=== PATIENT | male | born 1945 | race Caucasian/White ===

== ENCOUNTER → 2018-02-15 | Outpatient (CLI) | payer MEDICARE, BC ==
[~2018-02-15] MED LIST: ATORVASTATIN CA40 MG PO; LISINOPRIL10 MG PO; NOVOLIN N100 UNIT/1 SQ; PANTOPRAZOLE SO40 MG PO
== END ==
LOC: CARD 08:54
PROVIDERS: ATTEND Family Medicine
DX: R42 Dizziness and giddiness (principal)
CPT/HCPCS: 93880

== ENCOUNTER 2019-03-07 15:00 | Observation (INO) | payer MEDICARE, BC ==
[2019-03-07] VITALS (7 sets, daily range): BP systolic 160–178; BP diastolic 77–91
[~2019-03-07] VITALS: Ht 175.3 cm; Wt 84.9 kg
--- NOTE | 2019-03-07 14:18 | NUR ---
PT ARRIVED BY STRETCHER TO ROOM. PT IN NO APPARENT DISTRESS AT THIS TIME. VSS. PT IS ALERT AND ORIENTED X3. PT AND SON ARE PRESENT AT BEDSIDE. PT CALL LIGHT IS IN REACH. BED IS IN LOW LOCKED POSITION. WILL CONTINUE TO MONITOR PT CLOSELY.
--- OUTSIDE RECORDS SUMMARY | 2019-03-07 15:04 | XMS REPORT ---
Author Author [facility] [place] [facility] Address Unknown Phone Unavailable Care Team Providers Care Wedding Designer Name Role Phone Unavailable Unavailable Payers Payer Name Policy Type Policy Number Effective Date Expiration Date Problems This patient has no known problems. Allergies, Adverse Reactions, Alerts Allergy Name Allergy Type Status Severity Reaction(s) Onset Date Inactive Date Treating Clinician Comments No Known Drug Allergies DA Active U 2018-10-31 00:00:00 No Known Allergies DA Active U 2018-06-25 00:00:00 No Known Drug Allergies DA Active U 2015-11-15 00:00:00 Medications This patient has no known medications. Results Test Description Test Time Test Comments Text Results Atomic Results Result Comments GLUBED 2018-12-05 08:23:00 GLUBED (test code=GLUBED) 108 mg/dL 60-125 CBC W/AUTO [id number] 05:50:00* Test Item Value Reference Range Comments WHITE BLOOD CELL (test code=WBC) 10.1 K/mm3 5.7-10.5 RED BLOOD CELL (test code=RBC) 4.37 M/mm3 4.2-5.4 HEMOGLOBIN (test code=HGB) 13.0 g/dL 12-16 HEMATOCRIT (test code=HCT) 38.7 % 37-47 MEAN CELL VOLUME (test code=MCV) 89 fL 80-98 MEAN CELL HGB (test code=MCH) 29.7 pg 27-34 MEAN CELL HGB CONCENTRATION (test code=MCHC) 33.6 g/dL 30.8-34.1 RED CELL DISTRIBUTION WIDTH (test code=RDW) 13.4 % 11-16 PLT (test code=PLT) 169 K/mm3 130-400 MEAN PLATELET VOLUME (test code=MPV) 11.4 fL 8.9-12.1 NEUTROPHIL % (test code=NT%) 87.4 % 45-70 LYMPHOCYTE % (test code=LY%) 4.1 % 20-40 MONOCYTE % (test code=MO%) 6.5 % 3-10 EOSINOPHIL % (test code=EO%) 1.7 % 1-5 BASOPHIL % (test code=BA%) 0.1 % 0.0-1.1 NEUTROPHIL # (test code=NT#) 8.80 K/mm3 2.00-7.50 LYMPHOCYTE # (test code=LY#) 0.41 K/mm3 1.50-4.00 MONOCYTE # (test code=MO#) 0.65 K/mm3 0.2-0.8 EOSINOPHIL # (test code=EO#) 0.17 K/mm3 0.04-0.4 BASOPHIL # (test code=BA#) 0.01 K/mm3 0.02-0.10 MANUAL DIFF REQUIRED (test code=MDIFF) NO MANUAL DIFF NUCLEATED RED BLOOD CELL (test code=NRBC) 0 % 0-0 SPECIMEN COMMENT: POD #[id number] 20:56:00* Test Item Value Reference Range Comments GLUBED (test code=GLUBED) 255 mg/dL 60-125 [id number] 15:38:00* Test Item Value Reference Range Comments GLUBED (test code=GLUBED) 91 mg/dL 60-125 [id number] 12:05:00* Test Item Value Reference Range Comments GLUBED (test code=GLUBED) 84 mg/dL 60-125 CBC W/AUTO [id number] 10:56:00* Test Item Value Reference Range Comments WHITE BLOOD CELL (test code=WBC) 4.9 K/mm3 5.7-10.5 RED BLOOD CELL (test code=RBC) 5.10 M/mm3 4.2-5.4 HEMOGLOBIN (test code=HGB) 14.9 g/dL 12-16 HEMATOCRIT (test code=HCT) 45.0 % 37-47 MEAN CELL VOLUME (test code=MCV) 88 fL 80-98 MEAN CELL HGB (test code=MCH) 29.2 pg 27-34 MEAN CELL HGB CONCENTRATION (test code=MCHC) 33.1 g/dL 30.8-34.1 RED CELL DISTRIBUTION WIDTH (test code=RDW) 13.4 % 11-16 PLT (test code=PLT) 165 K/mm3 130-400 MEAN PLATELET VOLUME (test code=MPV) 11.3 fL 8.9-12.1 NEUTROPHIL % (test code=NT%) 69.2 % 45-70 LYMPHOCYTE % (test code=LY%) 14.5 % 20-40 MONOCYTE % (test code=MO%) 10.0 % 3-10 EOSINOPHIL % (test code=EO%) 4.7 % 1-5 BASOPHIL % (test code=BA%) 1.2 % 0.0-1.1 NEUTROPHIL # (test code=NT#) 3.38 K/mm3 2.00-7.50 LYMPHOCYTE # (test code=LY#) 0.71 K/mm3 1.50-4.00 MONOCYTE # (test code=MO#) 0.49 K/mm3 0.2-0.8 EOSINOPHIL # (test code=EO#) 0.23 K/mm3 0.04-0.4 BASOPHIL # (test code=BA#) 0.06 K/mm3 0.02-0.10 MANUAL DIFF REQUIRED (test code=MDIFF) NO MANUAL DIFF NUCLEATED RED BLOOD CELL (test code=NRBC) 0 % 0-0 PROTHROMBIN [id number] 10:53:00* Test Item Value Reference Range Comments PROTHROMBIN TIME PATIENT (test code=PTP) 12.7 secs 10.1-12.5 INTERNATIONAL NORMAL RATIO (test code=INR) 1.12 <2.0 RECOMMENDED THERAPEUTIC RANGE FOR ORAL ANTICOAGULANTTREATMENT: CONDITION INRProphylaxis of venous thrombosis in 2.0 - 3.0 high-risk medical or surgical patientsTreatment of venous thrombosis 2.0 - 3.0Prevention of embolism 2.0 - 3.0Prevention of recurrent embolism, or 3.0 - 4.5 patients with mechanical prosthetic intravascular valves IS PATIENT ON ANTICOAGULANTS ? [facility] been notified if Patient is on Heparin D rip? NOIf Yes, order CBC, OCCULT BLOOD, PT every other day NTHROMBOPLASTIN TIME [id number] 10:53:00* Test Item Value Reference Range Comments PTT ACTIVATED (test code=APTT) 21.0 secs 24.9-37.0 IS PATIENT ON ANTICOAGULANTS ? [facility] been notified if Patient is on Heparin D rip? NOIf Yes, order CBC, OCCULT BLOOD, PT every other day NCOMPREHENSIVE METABOLIC [id number] 10:52:00* Test Item Value Reference Range Comments SODIUM (test code=NA) 140 mmol/L 136-145 POTASSIUM (test code=K) 4.3 mmol/L 3.5-5.1 CHLORIDE (test code=CL) 104.0 mmol/L 98-107 CARBON DIOXIDE (test code=CO2) 26.5 mmol/L 21-32 GLUCOSE (test code=GLU) 108 mg/dL 70-110 BLOOD UREA NITROGEN (test code=BUN) 19 mg/dL 7-18 GLOMERULAR FILTRATION RATE (test code=GFR) 67.4 >60 Unit of measure: mL/min/1.73 [id number] Range:Healthy Adults >90 mL/min/1.73 m2 For Chronic Kidney Disease: Stage II Mild Decrease in GFR 60-90 Stage III Moderate Decrease in GFR 30-59 Stage IV Severe Decrease in GFR 15-29 Stage V Kidney Failure <15 CREATININE (test code=CREAT) 1.08 mg/dL 0.55-1.30 TOTAL PROTEIN (test code=PROT) 6.5 g/dL 6.4-8.2 ALBUMIN (test code=ALB) 3.9 g/dL 3.4-5.0 GLOBULIN (test code=GLOB) 2.6 g/dL 2.2-4.2 ALBUMIN/GLOBULIN RATIO (test code=A/G) 1.5 0.7-2.0 CALCIUM (test code=CA) 9.2 mg/dL 8.2-10.1 BILIRUBIN TOTAL (test code=BILT) 0.87 mg/dL 0.2-1.00 SGOT/AST (test code=AST) 30.0 U/L 15-37 SGPT/ALT (test code=ALT) 40.0 U/L 12-78 Please note new normal range. ALKALINE PHOSPHATASE TOTAL (test code=ALKP) 78 U/L 46-116 [id number] 06:46:00* Test Item Value Reference Range Comments GLUBED (test code=GLUBED) 96 mg/dL 60-125 [id number] 11:58:00* Test Item Value Reference Range Comments GLUBED (test code=GLUBED) 116 mg/dL 60-125 CBC W/AUTO [id number] 09:49:00* Test Item Value Reference Range Comments WHITE BLOOD CELL (test code=WBC) 11.5 K/mm3 5.7-10.5 RED BLOOD CELL (test code=RBC) 4.95 M/mm3 4.2-5.4 HEMOGLOBIN (test code=HGB) 14.5 g/dL 12-16 HEMATOCRIT (test code=HCT) 43.9 % 37-47 MEAN CELL VOLUME (test code=MCV) 89 fL 80-98 MEAN CELL HGB (test code=MCH) 29.3 pg 27-34 MEAN CELL HGB CONCENTRATION (test code=MCHC) 33.0 g/dL 30.8-34.1 RED CELL DISTRIBUTION WIDTH (test code=RDW) 13.2 % 11-16 PLT (test code=PLT) 131 K/mm3 130-400 REVIEW SLIDE ,OCCASIONAL PLTS CLUMPING SEEN WITH ADEQUATEPLTS.. MEAN PLATELET VOLUME (test code=MPV) 11.0 fL 8.9-12.1 NEUTROPHIL % (test code=NT%) 87.2 % 45-70 LYMPHOCYTE % (test code=LY%) 4.4 % 20-40 MONOCYTE % (test code=MO%) 7.1 % 3-10 EOSINOPHIL % (test code=EO%) 0.7 % 1-5 BASOPHIL % (test code=BA%) 0.3 % 0.0-1.1 NEUTROPHIL # (test code=NT#) 10.00 K/mm3 2.00-7.50 LYMPHOCYTE # (test code=LY#) 0.51 K/mm3 1.50-4.00 MONOCYTE # (test code=MO#) 0.82 K/mm3 0.2-0.8 EOSINOPHIL # (test code=EO#) 0.08 K/mm3 0.04-0.4 BASOPHIL # (test code=BA#) 0.03 K/mm3 0.02-0.10 MANUAL DIFF REQUIRED (test code=MDIFF) MANUAL DIFF NUCLEATED RED BLOOD CELL (test code=NRBC) 0 % 0-0 SPECIMEN COMMENT: POD #1CBC W/AUTO [id number] 09:49:00* Test Item Value Reference Range Comments WHITE BLOOD CELL (test code=WBC) 11.5 K/mm3 5.7-10.5 RED BLOOD CELL (test code=RBC) 4.95 M/mm3 4.2-5.4 HEMOGLOBIN (test code=HGB) 14.5 g/dL 12-16 HEMATOCRIT (test code=HCT) 43.9 % 37-47 MEAN CELL VOLUME (test code=MCV) 89 fL 80-98 MEAN CELL HGB (test code=MCH) 29.3 pg 27-34 MEAN CELL HGB CONCENTRATION (test code=MCHC) 33.0 g/dL 30.8-34.1 RED CELL DISTRIBUTION WIDTH (test code=RDW) 13.2 % 11-16 PLT (test code=PLT) 131 K/mm3 130-400 REVIEW SLIDE ,OCCASIONAL PLTS CLUMPING SEEN WITH ADEQUATEPLTS.. MEAN PLATELET VOLUME (test code=MPV) 11.0 fL 8.9-12.1 NEUTROPHIL % (test code=NT%) 87.2 % 45-70 LYMPHOCYTE % (test code=LY%) 4.4 % 20-40 MONOCYTE % (test code=MO%) 7.1 % 3-10 EOSINOPHIL % (test code=EO%) 0.7 % 1-5 BASOPHIL % (test code=BA%) 0.3 % 0.0-1.1 NEUTROPHIL # (test code=NT#) 10.00 K/mm3 2.00-7.50 LYMPHOCYTE # (test code=LY#) 0.51 K/mm3 1.50-4.00 MONOCYTE # (test code=MO#) 0.82 K/mm3 0.2-0.8 EOSINOPHIL # (test code=EO#) 0.08 K/mm3 0.04-0.4 BASOPHIL # (test code=BA#) 0.03 K/mm3 0.02-0.10 MANUAL DIFF REQUIRED (test code=MDIFF) NO MANUAL DIFF NUCLEATED RED BLOOD CELL (test code=NRBC) 0 % 0-0 SPECIMEN COMMENT: POD #1BASIC METABOLIC [id number] 06:43:00* Test Item Value Reference Range Comments SODIUM (test code=NA) 138 mmol/L 136-145 POTASSIUM (test code=K) 5.4 mmol/L 3.5-5.1 CHLORIDE (test code=CL) 104.0 mmol/L 98-107 CARBON DIOXIDE (test code=CO2) 25.5 mmol/L 21-32 GLUCOSE (test code=GLU) 117 mg/dL 70-110 BLOOD UREA NITROGEN (test code=BUN) 17 mg/dL 7-18 GLOMERULAR FILTRATION RATE (test code=GFR) 82.1 >60 Unit of measure: mL/min/1.73 [id number] Range:Healthy Adults >90 mL/min/1.73 m2 For Chronic Kidney Disease: Stage II Mild Decrease in GFR 60-90 Stage III Moderate Decrease in GFR 30-59 Stage IV Severe Decrease in GFR 15-29 Stage V Kidney Failure <15 CREATININE (test code=CREAT) 0.91 mg/dL 0.55-1.30 CALCIUM (test code=CA) 8.4 mg/dL 8.2-10.1 CBC W/AUTO [id number] 06:18:00* Test Item Value Reference Range Comments WHITE BLOOD CELL (test code=WBC) 11.5 K/mm3 5.7-10.5 RED BLOOD CELL (test code=RBC) 4.95 M/mm3 4.2-5.4 HEMOGLOBIN (test code=HGB) 14.5 g/dL 12-16 HEMATOCRIT (test code=HCT) 43.9 % 37-47 MEAN CELL VOLUME (test code=MCV) 89 fL 80-98 MEAN CELL HGB (test code=MCH) 29.3 pg 27-34 MEAN CELL HGB CONCENTRATION (test code=MCHC) 33.0 g/dL 30.8-34.1 RED CELL DISTRIBUTION WIDTH (test code=RDW) 13.2 % 11-16 PLT (test code=PLT) 131 K/mm3 130-400 MEAN PLATELET VOLUME (test code=MPV) 11.0 fL 8.9-12.1 NEUTROPHIL % (test code=NT%) 87.2 % 45-70 LYMPHOCYTE % (test code=LY%) 4.4 % 20-40 MONOCYTE % (test code=MO%) 7.1 % 3-10 EOSINOPHIL % (test code=EO%) 0.7 % 1-5 BASOPHIL % (test code=BA%) 0.3 % 0.0-1.1 NEUTROPHIL # (test code=NT#) 10.00 K/mm3 2.00-7.50 LYMPHOCYTE # (test code=LY#) 0.51 K/mm3 1.50-4.00 MONOCYTE # (test code=MO#) 0.82 K/mm3 0.2-0.8 EOSINOPHIL # (test code=EO#) 0.08 K/mm3 0.04-0.4 BASOPHIL # (test code=BA#) 0.03 K/mm3 0.02-0.10 MANUAL DIFF REQUIRED (test code=MDIFF) MANUAL DIFF NUCLEATED RED BLOOD CELL (test code=NRBC) 0 % 0-0 SPECIMEN COMMENT: POD #[id number] 05:54:00* Test Item Value Reference Range Comments GLUBED (test code=GLUBED) 97 mg/dL 60-125 [id number] 21:32:00* Test Item Value Reference Range Comments GLUBED (test code=GLUBED) 177 mg/dL 60-125 - XR SHOULDER 1 V [id number] 16:33:00 Patient Name: ROBBY BRUSH Unit No: [id number] EXAMS: CPT CODE: [id number] XR SHOULDER 1 [place] [address]8567 AP PORTABLE RIGHT SHOULDER COMMENT: 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 at 1633 Reported and signed by: Chris Le MD CC: Robby Light MD Technologist: Barry Chambers,RT(R). Transcribed D/ (4602) [facility] NAME: ROBBY BRUSH [address] [place] [address] PHYS: Robby Quigley : 1945 AGE: 72 SEX: M [place], [place] [address] LOC: Y.321 A PHONE #: [phone] EXAM DATE: 07/24/2018 STATUS: ADM IN FAX #: [phone] RAD #: D/C DT PAGE 1 Signed Report Patient Name: ROBBY BRUSH Unit No: [id number] EXAMS: CPT CODE: [id number] XR SHOULDER 1 V RT 14840 <Continued> Orig Print D/T: S: 07/24/2018 (9823) [facility] NAME: ROBBY BRUSH [address] [place] [address] PHYS: Robby Quigley : 1945 AGE: 72 SEX: M [place], [place] [address] LOC: Y.321 A PHONE #: [phone] EXAM DATE: 07/24/2018 STATUS: ADM IN FAX #: [phone] RAD #: D/C DT PAGE 2 Signed Report [id number] 10:34:00* Test Item Value Reference Range Comments GLUBED (test code=GLUBED) 80 mg/dL 60-125 - CT UP EXTREM W/O CONT [id number] 08:44:00 Patient Name: ROBBY BRUSH Unit No: [id number] EXAMS: CPT CODE: [id number] [place] EXTREM W/[place] [address] [place] OF THE LEFT SHOULDER WITH SAGITTAL AND CORONAL RECONSTRUCTIONS DIAGNOSIS: 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 Multiple osseous loose bodies are seen in the subscapularis recess of the joint. COMMENT: COMPARISON: No prior exams available. Scans were performed with thin sections and reconstructions were obtained. CT radiation dose optimization is achieved for this examination by the use of a CT protocol in accordance with ACR practice standards and adherence to motorcycle deliverer's recommendations. Degenerative changes are present as noted. There is no evidence for rotator cuff atrophy. at 0844 Reported and signed by: Chris Le MD CC: Robyb Light MD [facility] nologist: David Rahman,(R) CTDI: DLP: 0 Trnscrpt: 09/2018 (0844) [email or web address] [facility] NAME: ROBBY BRUSH [address] [facility] PHYS: EDWTH - Robby Light : 1945 AGE: 72 SEX: M [place] [id number] ACCT N O: [id number] LOC: Y.RAD PHONE #: [phone] EXAM DATE: 06/25/2018 STATUS: DEP CLI FAX #: [phone] RAD #: D/C DT PAGE 1 Signed Report Patient Name: ROBBY BRUSH Unit No: [id number] EXAMS: CPT CODE: [id number] CT UP EXTREM W/[place] [address] < Continued> Orig Print D/T: S: 06/26/2018 (0847) [facility] NAME: ROBBY BRUSH [address] [place] [address] PHYS: RK LightRobby Butt : 1945 AGE: 72 SEX: M [place] [address] LOC: Y.RAD PHONE #: [phone] EXAM DATE: 06/25/2018 STATUS: DEP CLI FAX #: [phone] RAD #: D/C DT PAGE 2 Signed Report - CT UP EXTREM W/O CONT [id number] 08:41:00 Patient Name: ROBBY BRUSH Unit No: [id number] EXAMS: CPT CODE: [id number] [place] UP EXTREM W/[place] [address] CT OF THE RIGHT SHOULDER WITH SAGITTAL AND CORONAL RECONSTRUCTIONS DIAGNOSIS: There is advanced glenohumeral joint degenerative change with narrowing, spur formation and subchondral cyst formation. Moderate atrophy of the infraspinatus muscle is seen with mild atrophy of the supraspinatus muscle. There is superior migration of the humeral head which is articulating with the acromion and there is a small ununited fracture is present of the anterior acromion. COMMENT: COMPARISON: No prior exams available. Scans were performed with thin sections and reconstructions were obtained. CT radiation dose optimization is achieved for this examination by the use of a CT protocol in accordance with ACR practice standards and adherence to motorcycle deliverer's recommendations. Degenerative changes are as noted. The rotator cuff is abnormal as described. at 0841 Reported and signed by: Chris Le MD CC: Robby Light MD Technologist: David Rahman,RT(R) CTDI: DLP: 0 Trnscrpt: 06/26/2018 (0841) [address] [facility] NAME: ROBBY BRUSH [address] [facility] PHYS: RK Desai LightRobby Butt : 1945 AGE: 72 SEX: M [place] [address] LOC: KattyRAD PHONE #: [phone] EXAM DATE: 06/25/2018 STATUS: DEP CLI FAX #: [phone] RAD #: D/C DT PAGE 1 Signed Report Patient Name: ROBBY BRUSH Unit No: [id number] EXAMS: CPT CODE: [id number] CT [place] EXTREM W/[place] [address] <Continued> Orig Print D/T: S: 06/26/2018 (0845) [facility] NAME: ROBBY BRUSH [address] [facility] PHYS: JTNADERRobby [place] : 1945 AGE: 72 SEX: M [place], [place] [address] LOC: KattyRAD PHONE #: [phone] EXAM DATE: 06/25/2018 STATUS: DEP CLI FAX #: [phone] RAD #: D/C DT PAGE 2 Signed Report PROTHROMBIN TIME 2018-06-25 13:35:00* Test Item Value Reference Range Comments PROTHROMBIN TIME PATIENT (test code=PTP) 13.0 secs 10.1-12.5 INTERNATIONAL NORMAL RATIO (test code=INR) 1.15 <2.0 RECOMMENDED THERAPEUTIC RANGE FOR ORAL ANTICOAGULANTTREATMENT: CONDITION INRProphylaxis of venous thrombosis in 2.0 - 3.0 high-risk medical or surgical patientsTreatment of venous thrombosis 2.0 - 3.0Prevention of embolism 2.0 - 3.0Prevention of recurrent embolism, or 3.0 - 4.5 patients with mechanical prosthetic intravascular valves IS PATIENT ON ANTICOAGULANTS ? [facility] been notified if Patient is on Heparin D rip? NOTHROMBOPLASTIN TIME [id number] 13:35:00* Test Item Value Reference Range Comments PTT ACTIVATED (test code=APTT) 29.2 secs 24.9-37.0 IS PATIENT ON ANTICOAGULANTS ? [facility] been notified if Patient is on Heparin D rip? NOCOMPREHENSIVE METABOLIC [id number] 13:35:00* Test Item Value Reference Range Comments SODIUM (test code=NA) 142 mmol/L 136-145 POTASSIUM (test code=K) 4.8 mmol/L 3.5-5.1 CHLORIDE (test code=CL) 104.0 mmol/L 98-107 CARBON DIOXIDE (test code=CO2) 31.3 mmol/L 21-32 GLUCOSE (test code=GLU) 90 mg/dL 70-110 BLOOD UREA NITROGEN (test code=BUN) 18 mg/dL 7-18 GLOMERULAR FILTRATION RATE (test code=GFR) 85.4 >60 Unit of measure: mL/min/1.73 [id number] Range:Healthy Adults >90 mL/min/1.73 m2 For Chronic Kidney Disease: Stage II Mild Decrease in GFR 60-90 Stage III Moderate Decrease in GFR 30-59 Stage IV Severe Decrease in GFR 15-29 Stage V Kidney Failure <15 CREATININE (test code=CREAT) 0.88 mg/dL 0.55-1.30 TOTAL PROTEIN (test code=PROT) 7.0 g/dL 6.4-8.2 ALBUMIN (test code=ALB) 4.0 g/dL 3.4-5.0 GLOBULIN (test code=GLOB) 3.0 g/dL 2.2-4.2 ALBUMIN/GLOBULIN RATIO (test code=A/G) 1.3 0.7-2.0 CALCIUM (test code=CA) 9.2 mg/dL 8.2-10.1 BILIRUBIN TOTAL (test code=BILT) 0.55 mg/dL 0.2-1.00 SGOT/AST (test code=AST) 36.0 U/L 15-37 SGPT/ALT (test code=ALT) 44.0 U/L 12-78 Please note new normal range. ALKALINE PHOSPHATASE TOTAL (test code=ALKP) 77 U/L 46-116 CBC W/AUTO [id number] 13:11:00* Test Item Value Reference Range Comments WHITE BLOOD CELL (test code=WBC) 4.3 K/mm3 5.7-10.5 RED BLOOD CELL (test code=RBC) 5.41 M/mm3 4.2-5.4 HEMOGLOBIN (test code=HGB) 15.8 g/dL 12-16 HEMATOCRIT (test code=HCT) 47.3 % 37-47 MEAN CELL VOLUME (test code=MCV) 87 fL 80-98 MEAN CELL HGB (test code=MCH) 29.2 pg 27-34 MEAN CELL HGB CONCENTRATION (test code=MCHC) 33.4 g/dL 30.8-34.1 RED CELL DISTRIBUTION WIDTH (test code=RDW) 13.2 % 11-16 PLT (test code=PLT) 204 K/mm3 130-400 MEAN PLATELET VOLUME (test code=MPV) 10.3 fL 8.9-12.1 NEUTROPHIL % (test code=NT%) 63.6 % 45-70 LYMPHOCYTE % (test code=LY%) 19.7 % 20-40 MONOCYTE % (test code=MO%) 11.3 % 3-10 EOSINOPHIL % (test code=EO%) 4.0 % 1-5 BASOPHIL % (test code=BA%) 1.2 % 0.0-1.1 NEUTROPHIL # (test code=NT#) 2.71 K/mm3 2.00-7.50 LYMPHOCYTE # (test code=LY#) 0.84 K/mm3 1.50-4.00 MONOCYTE # (test code=MO#) 0.48 K/mm3 0.2-0.8 EOSINOPHIL # (test code=EO#) 0.17 K/mm3 0.04-0.4 BASOPHIL # (test code=BA#) 0.05 K/mm3 0.02-0.10 MANUAL DIFF REQUIRED (test code=MDIFF) NO MANUAL DIFF NUCLEATED RED BLOOD CELL (test code=NRBC) 0 % 0-0
[2019-03-07] MEDS ORDERED: GABAPENTIN100 MG PO (15:56)
[2019-03-07] MEDS ORDERED: DEXTROSE 50% SYRINGE 50 ML IV PRN (17:30)
[2019-03-07] MEDS ORDERED: METOPROLOL TARTRATE INJ 1 MG/ML VIAL IV PRN (17:30)
[2019-03-07] MEDS ORDERED: ACETAMINOPHEN 325 MG TAB PO PRN (17:30)
[2019-03-07] MEDS ORDERED: ACETAMINOPHEN/CODEINE 300MG - 30MG TAB PO PRN (17:30)
[2019-03-07] MEDS ORDERED: ONDANSETRON HCL INJ 2MG/ML 2ML 2 MG/ML VIAL IV PRN (17:30)
[2019-03-07] MEDS: FAMOTIDINE 20 MG TAB PO SCH (18:28)
[2019-03-07 18:35] LABS: BASOPHILS % 0.6 % (0.0-1.0); EOSINOPHILS % 0.5 % (0.0-6.0); HEMATOCRIT 46.5 % (38.2-49.6); HEMOGLOBIN 14.8 g/dL (14.0-18.0); LYMPHOCYTES # (AUTO) 0.6 (1.0-3.2); LYMPHOCYTES % 10.2 % (18.0-39.1); MEAN CORPUSCULAR HEMOGLOBIN 28.7 pg (28-32); MEAN CORPUSCULAR HGB CONC 31.8 g/dL (31-35); MEAN CORPUSCULAR VOLUME 90.1 fL (81-99); MONOCYTES # (AUTO) 0.4 (0.2-0.8); MONOCYTES % 5.9 % (4.4-11.3); NEUTROPHILS # (AUTO) 5.2 (2.1-6.9); NEUTROPHILS % 82.6 % (38.7-80.0); PLATELET COUNT 169 x10e3/uL (140-360); RED BLOOD COUNT 5.16 x10e6/uL (4.3-5.7); RED CELL DISTRIBUTION WIDTH 13.3 % (11.7-14.4)
[2019-03-07 18:50] LABS: ANION GAP 13.1 mmol/L (8-16); BLOOD UREA NITROGEN 10 mg/dL (7-26); BUN/CREATININE RATIO 12 (6-25); CALCIUM 9.3 mg/dL (8.4-10.2); CARBON DIOXIDE 26 mmol/L (22-29); CHLORIDE 105 mmol/L (98-107); CREATININE, SERUM 0.81 mg/dL (0.72-1.25); EST GLOMERULAR FILTRATION RATE > 60 ML/MIN (60-); GLUCOSE 101 mg/dL (74-118); POTASSIUM 4.1 mmol/L (3.5-5.1); SODIUM 140 mmol/L (136-145)
[2019-03-07] MEDS ORDERED: GABAPENTIN 100 MG CAP PO SCH (21:00)
[2019-03-07] MEDS ORDERED: NON-FORMULARY MEDICATION (Atorvastatin Calcium 40 MG) PO SCH (21:00)
[2019-03-07] MEDS ORDERED: MELATONIN 5 MG TABLET PO PRN (21:00)
[2019-03-07] MEDS: INSULIN LISPRO 100 UNIT/1 ML 3ML VIAL SQ SCH (21:00)
[2019-03-07] MEDS ORDERED: ATORVASTATIN 40 MG TAB PO SCH (21:00)
--- NOTE | 2019-03-08 00:20 | Consultation ---
DATE OF CONSULTATION: 03/07/2019 Cardiology Consultation REASON FOR CONSULTATION: Hypertension, dizziness, atrial fibrillation. HISTORY: Consult received at almost 07:00 p.m. and at the same time of my consultation, I am dictating. This is a 73-year-old gentleman known with diabetes mellitus, hypertension, and hyperlipidemia. The patient also known with longstanding history of arthritis, status post bilateral shoulder replacement as well as right and left hip replacements. He does have interesting history of ulcerative colitis, total colectomy with pouch surgery with subsequent ileostomy placement. The patient is very, very physically active. In fact, he just had surgery a few months back on his right shoulder and is doing physical therapy exercise on regular basis. Yesterday, while he was exercising, he felt not so easy. He denied having any chest pain. He was a little bit dizzy. It is not clear if he has also sweat. He relaxed and he took some food and he is feeling good. He is very active. However, this morning, he felt again lazy and a little bit dizzy. He did not have any syncope or presyncope. He did not have any chest pain. Yesterday, he felt nauseated and probably he has some heaves, but this morning there was no chest pain, no diaphoresis, no nausea, no vomiting, but he was not at his usual. Then, he decided to come to the emergency room. In the emergency room, his blood pressure was elevated at 190/80. An EKG was done, which showed sinus bradycardia in the low 50s with right bundle-branch block, nonspecific ST changes. The computer read it as atrial fibrillation. The patient was given some treatment for hypertension and it was certainly converted to normal sinus rhythm and rhythm strip is there, but reviewing all the data, I cannot see any atrial fibrillation there. Regardless, the patient is feeling perfect now. He does not have any chest pain or any shortness of breath. He is relaxed and he is happy. He is able to walk around without any symptoms and he feels back to normal. REVIEW OF SYSTEMS: Extensive to all systems, will be summarized for clarity. GENERAL: No fever. No chills. HEENT: No vision problem. No hearing problem. PULMONARY: No cough. No hemoptysis. No pleuritic chest pain. No recent travel. CARDIAC: As per history and physical. No active cardiac symptoms. The patient is very physically active with no angina or any other symptoms. GI: The patient does have ileostomy tube. HEMATOLOGY: No easy bruising or bleeding. MUSCULOSKELETAL: No aches. No pain after repair of his right shoulder. ENDOCRINE: The patient is diabetic of many years' duration. SOCIAL HISTORY: He is . He is nonsmoker and nonalcohol drinker. He is retired. 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 He had several injuries including his right shoulder. He used to play baseball. HOME MEDICATIONS: Gabapentin 200 mg at bedtime, Lipitor 40 mg per day, lisinopril 10 mg a day, Novolin N, and Protonix 40 mg a day. ALLERGIES: NONE. PAST MEDICAL HISTORY: 1. Hypertension. 2. Diabetes mellitus. 3. Hyperlipidemia. 4. Ulcerative colitis. 5. Total colectomy and ileostomy twice. 6. Right and left shoulder replacement. 7. Right and left hip surgery. FAMILY HISTORY: Father at age 81, but he had CABG in his 60s. Mother of complication of dementia. PHYSICAL EXAMINATION: GENERAL: Well-built gentleman, in no acute distress. VITAL SIGNS: Blood pressure 140/80, heart rate of 50, respiratory rate of 18. HEENT: Pupils are equal and reactive. NECK: No elevation of jugular venous pulsation. No bruit. CHEST: Clear to auscultation and percussion. HEART: PMI in fifth left intercostal space. Normal first and second heart sounds. ABDOMEN: Soft with good bowel sounds. No organomegaly. Ileostomy is noted. Scar of previous surgery is noted. EXTREMITIES: No cyanosis, no clubbing, no edema. No signs of deep venous thrombosis. NEUROLOGIC: Awake, alert, oriented, able to move all extremity at ease. No abnormalities noted. LABORATORY DATA: White blood cell count of 6.7, hemoglobin of 15.8, hematocrit 48%. Sodium of 138, potassium 4.4, BUN of 10, creatinine 0.9, glucose of 129. EKG from the emergency room showed sinus bradycardia, right bundle-branch block, nonspecific ST changes. All telemetry review are normal sinus rhythm. IMPRESSION AND PLAN: 1. Dizziness, resolved, questionable etiology. 2. No atrial fibrillation is documented at all. 3. The patient although bradycardic, but he is very active, and probably this is the cause. 4. Severe hypertension. 5. Diabetes mellitus. 6. Hyperlipidemia. 7. Ulcerative colitis, quiescent. 8. Degenerative joint disease, status post several surgeries. Cardiac-guzman, the patient seems to be stable. I cannot find any documentation for atrial fibrillation to commit him for anticoagulation at this standpoint. We will keep him on telemetry. We will repeat his lab in the morning. We will check his TSH and lipid profile. We would get stool for blood, etc. The most important test for this gentleman will be a stress test because of his cardiac risk factors. All this discussed and explained. We will keep the patient on telemetry. Of note, after we did talk together with the patient, he is followed by Dr. Jason Sampson. I informed him, Dr. Sampson has a son who is the auto body detailer, not Dr. Mckeon he knows, but Dr. Andrea Sampson is a auto body detailer and is an excellent auto body detailer. I offered to give him a call and let him to be his auto body detailer. If the patient will be here by tomorrow morning, and if Dr. Sampson is on, we will ask him to come to see him, but regardless he can follow with Dr. Sampson to have his stress test and Dr. Sampson to become his auto body detailer. I would like to thank you for your kind referral. MD LUZ MARIA Freeman/KYLEL /[id number]
[2019-03-08 04:35] VITALS: BP 129/72
[2019-03-08 04:41] VITALS: BP 152/71
[2019-03-08] MEDS ORDERED: MECLIZINE HCL12.5 MG PO (05:34)
[2019-03-08] MEDS ORDERED: NORVASC10 MG PO (05:34)
--- NOTE | 2019-03-08 06:11 | NUR ---
CALL PLACED FOR DR. BOWIE ROUTINE CONSULT. LEFT VOICEMAIL.
[2019-03-08 06:13] LABS: BASOPHILS # (AUTO) 0.1 (0.0-0.1); BASOPHILS % 1.2 % (0.0-1.0); EOSINOPHILS # (AUTO) 0.2 (0.0-0.4); EOSINOPHILS % 2.9 % (0.0-6.0); HEMOGLOBIN 14.4 g/dL (14.0-18.0); LYMPHOCYTES # (AUTO) 1.1 (1.0-3.2); MEAN CORPUSCULAR HEMOGLOBIN 28.9 pg (28-32); MEAN CORPUSCULAR VOLUME 90.2 fL (81-99); MONOCYTES # (AUTO) 0.5 (0.2-0.8); MONOCYTES % 10.5 % (4.4-11.3); NEUTROPHILS # (AUTO) 3.3 (2.1-6.9); PLATELET COUNT 168 x10e3/uL (140-360); RED BLOOD COUNT 4.99 x10e6/uL (4.3-5.7); RED CELL DISTRIBUTION WIDTH 13.5 % (11.7-14.4)
[2019-03-08 06:28] LABS: BLOOD UREA NITROGEN 13 mg/dL (7-26); BUN/CREATININE RATIO 13 (6-25); CALCIUM 9.7 mg/dL (8.4-10.2); CARBON DIOXIDE 30 mmol/L (22-29); CHLORIDE 104 mmol/L (98-107); CHOL/HDL RATIO 3.3 (3.9-4.7); CHOLESTEROL 130 MD/DL (0-199); CREATININE, SERUM 0.98 mg/dL (0.72-1.25); EST GLOMERULAR FILTRATION RATE > 60 ML/MIN (60-); GLUCOSE 100 mg/dL (74-118); HDL CHOLESTEROL 39 MG/DL (40-60); LDL CHOLESTEROL 65 MG/DL (60-130); SODIUM 141 mmol/L (136-145); TRIGLYCERIDES 132 MG/DL (0-149)
[2019-03-08 06:34] LABS: B-TYPE NATRIURETIC PEPTIDE2 96.6 pg/mL (0-100)
[2019-03-08 06:40] LABS: ANION GAP 12.4 mmol/L (8-16)
[2019-03-08 06:43] LABS: POTASSIUM 5.4 mmol/L (3.5-5.1)
[2019-03-08] MEDS: INSULIN LISPRO 100 UNIT/1 ML 3ML VIAL SQ SCH ×3 (07:30→15:43)
[2019-03-08 07:39] VITALS: BP 151/65
[2019-03-08] MEDS ORDERED: SOD POLYSTYRENE SULFONATE SUSP 15 GM/60 ML BTL PO ONE (07:45)
[2019-03-08 08:48] VITALS: BP 151/65
[2019-03-08] MEDS: FAMOTIDINE 20 MG TAB PO SCH ×2 (08:48→16:50)
[2019-03-08] MEDS ORDERED: LISINOPRIL 20 MG TAB PO SCH (09:00)
[2019-03-08] MEDS ORDERED: AMLODIPINE BESYLATE 10 MG TAB PO SCH (09:00)
[2019-03-08] MEDS ORDERED: BENZONATATE 100 MG CAP PO PRN (09:00)
[2019-03-08] MEDS ORDERED: LISINOPRIL 10 MG TAB PO SCH (09:00)
--- NOTE | 2019-03-08 10:21 | Diagnostic Imaging Report ---
EXAMINATION: MRI of the brain without contrast. HISTORY: Dizziness for the last 2 days, hypertension, atrial fibrillation, evaluate for acute stroke COMPARISON: None. TECHNIQUE: Sagittal T2; axial DWI, T2, FLAIR, T1-IR, T2 gradient echo; coronal FLAIR. IMAGE QUALITY: Adequate. FINDINGS: Parenchyma: 1. Few scattered and mildly confluent periventricular T2 hyperintensities, likely nonspecific chronic microvascular ischemic changes. 2. Small chronic lacunar infarcts in the bilateral caudate nuclei and right putamen. 3. Small chronic cortical infarct in the bilateral cerebellar hemispheres. 4. No mass, hemorrhage, acute or chronic infarcts. Skull: Unremarkable. Vessels: Magnetic susceptibility along the basilar artery limits evaluation, this may may represent prior stent placement, correlation with past medical history is advised. Otherwise expected flow voids present in the major arteries and dural sinuses. Extra-axial spaces: No abnormal signal intensity or mass effect. Brain volume: Within normal limits for age. Ventricles: No hydrocephalus or displacement. Foramen magnum: Unremarkable. Sella: Unremarkable. Paranasal / mastoid sinuses: No significant inflammatory disease. Cervical spine: Partially visualized degenerative changes at C3-C4 resulting in canal and foraminal stenoses. If clinically indicated a nonemergent cervical spine MRI is recommended for further evaluation. IMPRESSION: 1. No acute infarcts. 2. Multiple small chronic lacunar/cortical infarct in the deep parmar nuclei and cerebral hemispheres. 3. Mild chronic microvascular ischemic changes. 4. Possible prior basilar artery stent placement. Signed by: Dr. Liliana Cao M.D. on 03/08/2019 10:18 AM
[2019-03-08 11:33] VITALS: BP 166/75
--- NOTE | 2019-03-08 13:01 | NUR ---
Handoff report rec'd at bedside for continuity of care.
--- NOTE | 2019-03-08 13:24 | NUR ---
Nutrition Screen Note RD Recommendation for Physician: Continue diet as ordered Plan of Care: RD following, monitoring for tolerance and adequacy Nutrition reason for involvement: Nutrition Risk Trigger - MST Primary Diagnose(s): HTN Dizziness, A-fib PMH: T2DM, HTN, ulcerative colitis, hyperlipidemia, Hx of total colectomy and ileostomy Ht:69 in Wt:187.13lb BMI:27.6 kg/m2 IBW:160lb +/-10% RD Assessment: (03/08/2019) Chart reviewed. Labs and meds reviewed. Initial encounter with patient. Diet Hx: Pt has no known food allergies. Pt denies any difficulty chewing or swallowing. Pt has an ileostomy and reports no nausea. No wt changes. Current Diet: Cardiac diet Malnutrition Evaluation (03/08/2019) The patient does not meet criteria for a specified degree of malnutrition at this time. Will re-evaluate at follow-up as appropriate. Diet Education Needs Assessment: Diet education not indicated. Nutrition Care Level: Low Signed: Pilo Perez RD, LD, [facility]
--- NOTE | 2019-03-08 13:42 | NUR ---
Miller letter was explained and given to the pt. Pt signed letter, original is placed in the chart, copy given to the pt.
[2019-03-08 15:40] VITALS: BP 160/79
--- NOTE | 2019-03-09 19:08 | Discharge Summary ---
ADMISSION DIAGNOSES: 1. Dizziness. 2. Hypertensive urgency. 3. Type 2 diabetes. 4. Hyperlipidemia. 5. History of ulcerative colitis. 6. Possible atrial fibrillation. DISCHARGE DIAGNOSES: 1. Dizziness. 2. Hypertensive urgency. 3. Type 2 diabetes. 4. Hyperlipidemia. 5. History of ulcerative colitis. 6. Possible atrial fibrillation. 7. Rule out atrial fibrillation. HISTORY: Type 2 diabetes, hypertension, hyperlipidemia, arthritis, ulcerative colitis. SURGICAL HISTORY: Bilateral shoulder replacement, bilateral hip replacement, right carotid endarterectomy, and total colectomy with ileostomy placement. FAMILY HISTORY: The patient's son has diabetes. The patient's father had a heart attack. SOCIAL HISTORY: Noncontributory. HOSPITAL COURSE: A 73-year-old male, admits with complaints of dizziness and hypertension while sitting at rehab for his left shoulder on . He says he was using a hand bike when he started to feel dizzy. His blood pressure was 183/81, 5 minutes later, the nurse checked his blood pressure and it was 190/90. His symptoms lasted about 30 minutes before resolving spontaneously. On the day prior to admission, he did not so well, so he came to the ER. He denies chest pain and palpitations. In the outpatient ER, the CT of the brain were negative and the EKG showed AFib at a rate of 51. He was transferred to [facility] and Cardiology was consulted. MRI of the brain was negative. Carotid Doppler was negative for significant stenosis. Lipid panel was within normal limits. Once Cardiology saw the EKG that read as AFib, they determined it was not actually AFib, it was just a sinus bradycardia. So per Cardiology, the patient is okay to discharge home. He was given new prescriptions for Norvasc and meclizine. The patient will follow up with primary care and Cardiology in 1 to 2 weeks. The patient understands discharge instructions and agrees to plan. The patient was discharged by nurse with a discharge order from the consult and not the attending service. Dictated by Eloina Coleman NP MD SONIA Leach/KEILA /[id number]
== END 2019-03-08 20:00 | disposition home or self-care (01) ==
LOC: INTOOBSV 15:00 → MED/SURG2 15:00
PROVIDERS: ADMIT Internal Medicine; ATTEND Internal Medicine
DX: R42 Dizziness and giddiness (principal); R00.1 Bradycardia, unspecified; I10 Essential (primary) hypertension; E11.9 Type 2 diabetes mellitus without complications; M19.90 Unspecified osteoarthritis, unspecified site; K51.90 Ulcerative colitis, unspecified, without complications; Z83.3 Family history of diabetes mellitus; Z82.49 Family history of ischemic heart disease and other diseases of the circulatory system; I16.0 Hypertensive urgency; E78.5 Hyperlipidemia, unspecified; Z93.3 Colostomy status; Z96.612 Presence of left artificial shoulder joint; Z96.611 Presence of right artificial shoulder joint; Z96.643 Presence of artificial hip joint, bilateral; Z79.4 Long term (current) use of insulin
CPT/HCPCS: 36415 ×2; 70551; 80048 ×2; 80061; 82270; 82948 ×2; 83036; 83880; 84443; 85025 ×2; 93306; 93880; 97116; 97161; G0378 ×2

== ENCOUNTER 2019-03-10 13:20 | Inpatient (IN) | payer MEDICARE, BC ==
[~2019-03-10] VITALS: Ht 175.3 cm; Wt 86.2 kg
[~2019-03-10 13:20] MED LIST changes: +GABAPENTIN100 MG PO; +MECLIZINE HCL12.5 MG PO; +NORVASC10 MG PO
[2019-03-10] MEDS ORDERED: SODIUM CHLORIDE 0.9% 1000ML 1,000 ML IV ONE (14:15)
[2019-03-10 14:34] LABS: BASOPHILS % 0.6 % (0.0-1.0); EOSINOPHILS # (AUTO) 0.2 (0.0-0.4); EOSINOPHILS % 2.4 % (0.0-6.0); HEMATOCRIT 49.5 % (38.2-49.6); LYMPHOCYTES # (AUTO) 0.8 (1.0-3.2); LYMPHOCYTES % 11.8 % (18.0-39.1); MEAN CORPUSCULAR HEMOGLOBIN 28.7 pg (28-32); MEAN CORPUSCULAR HGB CONC 32.3 g/dL (31-35); MEAN CORPUSCULAR VOLUME 88.9 fL (81-99); MONOCYTES # (AUTO) 0.6 (0.2-0.8); MONOCYTES % 8.3 % (4.4-11.3); NEUTROPHILS % 76.6 % (38.7-80.0); PLATELET COUNT 178 x10e3/uL (140-360); RED BLOOD COUNT 5.57 x10e6/uL (4.3-5.7); RED CELL DISTRIBUTION WIDTH 13.2 % (11.7-14.4)
[2019-03-10 14:50] LABS: MAGNESIUM 1.7 MG/DL (1.3-2.1)
[2019-03-10 15:17] LABS: ALANINE AMINOTRANSFERASE 34 IU/L (0-55); ALBUMIN 3.7 g/dL (3.5-5.0); ALBUMIN/GLOBULIN RATIO 1.2 (0.8-2.0); ALKALINE PHOSPHATASE 77 IU/L (40-150); ANION GAP 13.6 mmol/L (8-16); BLOOD UREA NITROGEN 13 mg/dL (7-26); BUN/CREATININE RATIO 16 (6-25); CALCIUM 9.2 mg/dL (8.4-10.2); CARBON DIOXIDE 21 mmol/L (22-29); CHLORIDE 106 mmol/L (98-107); EST GLOMERULAR FILTRATION RATE > 60 ML/MIN (60-); GLUCOSE 99 mg/dL (74-118); POTASSIUM 3.6 mmol/L (3.5-5.1); SODIUM 137 mmol/L (136-145)
[2019-03-10] MEDS ORDERED: SODIUM CHLORIDE 0.9% 1000ML 1,000 ML IV SCH (16:31)
[2019-03-10] MEDS ORDERED: ONDANSETRON HCL INJ 2MG/ML 2ML 2 MG/ML VIAL IV PRN (16:45)
[2019-03-10] MEDS ORDERED: SODIUM CHLORIDE FLUSH 10 ML SYR INJ PRN (16:45)
--- NOTE | 2019-03-10 17:30 | NUR ---
PT RECEIVED FROM ER. LIANNA. FAMILY AT BEDSIDE. EDUCATED PT ABOUT FALL PRECAUTIONS. CALL LIGHT WITH IN EASY REACH. INSTRUCTED PT TO USE CALL LIGHT FOR ALL THE NEEDS. PT VERBALIZED UNDERSTANDING. BED IS LOW AND LOCKED. SIDE RAILS X2. PT DENIES NEEDS AT THIS TIME.
--- NOTE | 2019-03-10 17:40 | NUR ---
DR. WAGGONER AT BEDSIDE. CONTINUE ALL THE HOME MEDS PER THE
[2019-03-10] MEDS ORDERED: MECLIZINE HCL 12.5 MG TAB PO PRN (17:45)
[2019-03-10] MEDS ORDERED: DEXTROSE 50% SYRINGE 50 ML IV PRN (17:45)
[2019-03-10 18:00] VITALS: BP 131/67
[2019-03-10 18:26] VITALS: BP 131/67
--- NOTE | 2019-03-10 19:00 | NUR ---
BEDSIDE SHIFT REPORT GIVEN TO THE PUBLICATION SPECIALIST RN. PT DENIED FURTHER NEEDS.
--- NOTE | 2019-03-10 19:15 | NUR ---
Patient received sitting up in bed. AAO x 4. No complaints of pain. No signs of respiratory distress. Fall precautions implemented. Patient instructed to call for assistance when needed. Call light within reach.
[2019-03-10 20:00] VITALS: BP 129/64
[2019-03-10 21:00] VITALS: BP 129/64
[2019-03-10] MEDS: INSULIN REGULAR, HUMAN 100 UNIT/1 ML 3ML VIAL SQ SCH (21:00)
[2019-03-10] MEDS ORDERED: INSULIN REGULAR, HUMAN 100 UNIT/1 ML 3ML VIAL SQ SCH (21:00)
[2019-03-10] MEDS ORDERED: NON-FORMULARY MEDICATION (Atorvastatin Calcium 40 MG) PO SCH (21:00)
[2019-03-10] MEDS: GABAPENTIN 100 MG CAP PO SCH (21:10)
[2019-03-10] MEDS: ATORVASTATIN 40 MG TAB PO SCH (21:10)
--- NOTE | 2019-03-10 21:15 | NUR ---
Patient's son was making inquiries to find out if patient would have "pacemaker' surgery tomorrow. Ms. Lara (scenic arts supervisor) stated that patient's name was not on the surgery list. Dr Bryant paged; a message was left on his voicemail regarding patient's son's inquiries.
[2019-03-11] VITALS (11 sets, daily range): BP systolic 128–164; BP diastolic 67–86
[2019-03-11 05:14] LABS: MAGNESIUM 1.8 MG/DL (1.3-2.1); PHOSPHORUS 3.8 MG/DL (2.3-4.7)
--- NOTE | 2019-03-11 07:00 | NUR ---
Patient resting comfortably. Walking rounds done. Shift report given to oncoming nurse.
--- NOTE | 2019-03-11 07:00 | NUR ---
BEDSIDE SHIFT REPORT RECEIVED FROM THE RESIDENTIAL PROPERTY TAX APPRAISER RN. EDUCATED PT ABOUT FALL PRECAUTIONS. CALL LIGHT WITH IN EASY REACH. INSTRUCTED PT TO USE CALL LIGHT FOR ALL THE NEEDS. PT VERBALIZED UNDERSTANDING. BED IS LOW AND LOCKED. SIDE RAILS X2.
--- NOTE | 2019-03-11 07:05 | NUR ---
PT IS CONCERNED ABOUT IF HE GETS PACEMAKER TODAY. CALLED DR. RUCKER AND INFORMED PT CONCERN. LEFT MESSAGE.
[2019-03-11] MEDS: INSULIN REGULAR, HUMAN 100 UNIT/1 ML 3ML VIAL SQ SCH ×4 (07:30→21:00)
--- NOTE | 2019-03-11 07:30 | NUR ---
CALL BACK FROM DR. RUCKER. KEEP THE PT NPO PER THE INFORMED THE SAME TO THE PT. PT IS ON NPO FROM MIDNIGHT PER THE PT.
[2019-03-11] MEDS ORDERED: LISINOPRIL 10 MG TAB PO SCH (09:00)
[2019-03-11] MEDS ORDERED: NPH, HUMAN INSULIN ISOPHANE 100 UNIT/1 ML 3ML VIAL SQ SCH (09:00)
--- NOTE | 2019-03-11 10:00 | NUR ---
DR. CLARK AT BEDSIDE. NEW ORDER FOR STRESS TEST AND ORTHO STATIC VITAL SIGNS. KEEP THE PT NPO PER THE
--- NOTE | 2019-03-11 11:05 | NUR ---
PAGED DR. CLARK AND REPORTED THE ORTHO STATIC VITAL SIGNS
--- NOTE | 2019-03-11 14:00 | NUR ---
PT OFF UNIT FOR PROCEDURE IN SAFE CONDITION.
--- NOTE | 2019-03-11 14:50 | NUR ---
Visit made by the Spiritual Care Department Pastoral Visitor, Gela Causey. PV provided pastoral presence, prayer, hospitality, and supportive listening. Pastoral Visitor informed pt/family of the scope of [employer] and availability. LAMONT JOE Wildlife Conservationist Spiritual Care Department O: [phone] Pager: [phone] ([phone] number calling from)
--- NOTE | 2019-03-11 16:00 | NUR ---
PT IS BACK TO THE UNIT AFTER PROCEDURE. PT DENIES NEEDS AT THIS TIME. CHANGE NPO TO ADA DIET PER DR. CLARK.
[2019-03-11] MEDS: AMLODIPINE BESYLATE 10 MG TAB PO SCH (16:52)
[2019-03-11] MEDS: LISINOPRIL 20 MG TAB PO SCH (16:52)
[2019-03-11] MEDS: PANTOPRAZOLE SOD 40 MG TABEC PO SCH (16:52)
--- NOTE | 2019-03-11 18:45 | Consultation ---
DATE OF CONSULTATION: 03/11/2019 Cardiology Consultation Note REQUESTING PHYSICIAN: Akua Maza MD. REASON FOR CONSULTATION: Bradycardia. HISTORY OF PRESENT ILLNESS: This is a 73-year-old male with history of hypertension, hyperlipidemia, and diabetes mellitus, who presented with complaints of dizziness. He reports that he has been having dizziness since this . He describes it as feeling the room spin. These episodes have occurred while he has been sitting and lasted approximately 30 minutes. He denies any chest pain or palpitations associated with these symptoms. He checked his blood pressure afterwards and noted his blood pressure was elevated. He has not noticed any change in the severity of his dizziness with change in position or movement. Given these recurrent episodes, he was seen in the office by Dr. Bryant and placed on carbide tool die maker. However, after he returned home, he had another episode of dizziness while he was seated at the computer. He, therefore presented to the ER for further evaluation. He denies any chest pain, shortness of breath, palpitations, edema, orthopnea, or PND. REVIEW OF SYSTEMS: Negative except as per HPI. PAST MEDICAL HISTORY: Hypertension, hyperlipidemia, diabetes mellitus. PAST SURGICAL HISTORY: 1. Tonsillectomy. 2. Appendectomy. 3. Right Achilles tendon repair. 4. Left knee surgery. 5. Bilateral hip replaced. ALLERGIES: PLEASE SEE EMR. MEDICATIONS: Please see medication list. SOCIAL HISTORY: Denies smoking. He quit 39 years ago. No alcohol or drugs. FAMILY HISTORY: Pertinent for mother with pacemaker and father with two vessel CABG as well as congestive heart failure status post ICD. PHYSICAL EXAMINATION: VITAL SIGNS: Temperature 96.2 degrees, pulse 63, respiratory rate 20, blood pressure 139/67, and oxygen saturation 98% on room air. GENERAL: Well-developed, well-nourished man, in no acute distress. HEENT: Normocephalic, atraumatic. Pupils equal. No scleral icterus. NECK: Supple. No thyromegaly or cervical lymphadenopathy. No carotid bruits. LUNGS: Clear to auscultation bilaterally. No wheeze or crackles. CARDIOVASCULAR: Normal rate, regular rhythm. No murmur. Normal S1, S2. ABDOMEN: Soft and nontender. EXTREMITIES: No edema. NEURO: Nonfocal exam. LABORATORY DATA: WBC 6.59, hemoglobin 16, and hematocrit 49.5, platelets 178. Sodium 137, potassium 3.6, chloride 106, CO2 21, BUN 13, creatinine 0.8. Troponin less than 0.001. TELEMETRY: Normal sinus rhythm, sinus bradycardia. EKG, sinus rhythm with left anterior fascicular block and right bundle-branch block. IMPRESSION: 1. Dizziness. 2. Bradycardia. 3. Abnormal ECG. 4. Carotid artery disease. 5. Hypertension. 6. Hyperlipidemia. 7. Diabetes mellitus. RECOMMENDATIONS: Monitor the patient on telemetry. He has no indication for permanent pacemaker at this time. Given risk factors, ischemic evaluation is indicated with nuclear stress test. This revealed mild inferior ischemia. We will discuss further coronary evaluation with the patient. Carotid Doppler was without evidence of hemodynamically significant stenosis to explain the patient's symptoms. Monitor blood pressure check orthostatic vitals. Continue home cardiac medications at this time. Thank you for this consult. We will continue to follow. Peyton Ocampo MD ABS/MODL /[id number]
--- NOTE | 2019-03-11 19:00 | NUR ---
BEDSIDE SHIFT REPORT GIVEN TO THE SENIOR QUALITY TECHNICIAN RN. PT DENIED FURTHER NEEDS.
--- NOTE | 2019-03-11 19:25 | NUR ---
Patient received sitting up in bed. AAOx 4. No acute distress noted. Call light within reach.
--- NOTE | 2019-03-11 20:26 | Myoview Stress Test ---
DATE OF STUDY: 03/11/2019 10:55:00 Stress Test - Treadmill ONLY INDICATION: Bradycardia. PROCEDURE TITLE: Rest/stress single isotope SPECT imaging with exercise stress and gated SPECT imaging. PROCEDURE IN DETAIL: The patient performed treadmill exercise using a Oscar protocol exercising for 7 minutes 32 seconds to stage III and completing estimated workload of 10.1 metabolic equivalents (METs). The resting heart rate was 80 beats per minute and increased to 140 beats per minute at peak exercise, which was 95% of the maximum predicted heart rate. The resting blood pressure was 125/79 mmHg, increased to 219/81 mmHg, which is a hypertensive response. The resting electrocardiogram demonstrated normal sinus rhythm with right bundle-branch block and left anterior fascicular block. There were no ST-segment changes suggestive of myocardial ischemia. Myocardial perfusion imaging was performed at rest following the injection of 11 mCi of tetrofosmin. At peak exercise, the patient injected 33 mCi of tetrofosmin. Gated post-stress tomographic imaging was performed. FINDINGS: The overall quality of study is fair. Left ventricular cavity is noted to be normal size on the rest and stress studies. SPECT images demonstrate a small mild perfusion defect in the inferior wall on stress images. Gated SPECT imaging reveals normal myocardial thickening and a wall motion. The left ventricular ejection fraction was calculated to be 58%. IMPRESSION: Myocardial perfusion imaging is abnormal. There is a small mild area of ischemia in the inferior wall. Overall, left ventricular systolic function was normal without regional wall motion abnormalities. Peyton Ocampo MD ABS/MODL /[id number]
[2019-03-11] MEDS: ATORVASTATIN 40 MG TAB PO SCH (20:58)
[2019-03-11] MEDS: GABAPENTIN 100 MG CAP PO SCH (20:59)
[2019-03-11] MEDS: NPH, HUMAN INSULIN ISOPHANE 100 UNIT/1 ML 3ML VIAL SQ SCH (21:00)
[2019-03-12] VITALS (8 sets, daily range): BP systolic 119–136; BP diastolic 65–80
--- NOTE | 2019-03-12 06:50 | NUR ---
Received patient lying in bed with eyes open. Respiration even and unlabored without SOB. Denies pain. Call light in reach.
--- NOTE | 2019-03-12 07:00 | NUR ---
Shift report given to oncoming nurse.
[2019-03-12] MEDS: INSULIN REGULAR, HUMAN 100 UNIT/1 ML 3ML VIAL SQ SCH ×4 (07:30→20:31)
[2019-03-12] MEDS: AMLODIPINE BESYLATE 10 MG TAB PO SCH (08:16)
[2019-03-12] MEDS: LISINOPRIL 20 MG TAB PO SCH (08:17)
[2019-03-12] MEDS: PANTOPRAZOLE SOD 40 MG TABEC PO SCH (08:18)
[2019-03-12] MEDS: NPH, HUMAN INSULIN ISOPHANE 100 UNIT/1 ML 3ML VIAL SQ SCH ×2 (08:20→20:31)
--- NOTE | 2019-03-12 14:48 | NUR ---
Report given to Gela. Patient is going to room 106. Notified patient about the transfer.
--- NOTE | 2019-03-12 19:40 | Progress Note ---
DATE: Cardiology Progress Note SUBJECTIVE: The patient feels well. Denies any recurrent dizziness episodes. No chest pain. OBJECTIVE: VITAL SIGNS: Temperature is 97.3, heart rate is 69, respirations are 20, blood pressure is 126/80, and oxygen saturation 97% on room air. GENERAL: Well appearing, in no apparent distress. CARDIOVASCULAR: Regular rate and rhythm. LUNGS: Clear to auscultation. ABDOMEN: Soft, nontender, and nondistended. EXTREMITIES: No clubbing, cyanosis, or edema. CARDIOVASCULAR MEDICATIONS: Reviewed. LABORATORY DATA: Reviewed. Stress testing showed inferior perfusion defect. IMPRESSION: 1. Dizziness. 2. Bradycardia. 3. Abnormal ECG. 4. Hypertension. 5. Hyperlipidemia. 6. Diabetes mellitus. 7. Abnormal stress test. RECOMMENDATIONS: Given risk factors and abnormal stress test, we will proceed with coronary angiography with possible intervention. Telemetry monitoring has revealed no significant arrhythmias and has only found PACs and PVCs. There is no indication for pacemaker at this time. Carotid artery Doppler ultrasound was within normal limits. The patient does have a basilar arterial stent, likely needs to be evaluated with a CTA or MRA of the neck. Andrea Sampson DO BM/MODL /[id number]
[2019-03-12] MEDS: GABAPENTIN 100 MG CAP PO SCH (20:32)
[2019-03-12] MEDS: ATORVASTATIN 40 MG TAB PO SCH (20:32)
[2019-03-13] VITALS (15 sets, daily range): BP systolic 100–192; BP diastolic 63–92
[2019-03-13] MEDS: INSULIN REGULAR, HUMAN 100 UNIT/1 ML 3ML VIAL SQ SCH ×3 (07:29→15:29)
[2019-03-13] MEDS ORDERED: MIDAZOLAM HCL 2 MG/2 ML VIAL ONE (08:10)
[2019-03-13] MEDS ORDERED: LIDOCAINE HCL 2% LOCAL 20 ML VIAL ONE (08:11)
[2019-03-13] MEDS ORDERED: FENTANYL CITRATE/PF 100MCG/2 ML INJ ONE (08:11)
[2019-03-13] MEDS ORDERED: SODIUM CHLORIDE 0.9% 1000ML 1,000 ML ONE (08:13)
[2019-03-13] MEDS ORDERED: HEPARIN SOD/SOD CHLORIDE 2,000 ML ONE (08:13)
[2019-03-13] MEDS ORDERED: IOPAMIDOL 370 MG/ML 200 ML INFUS..BTL INJ ONE (08:13)
[2019-03-13] MEDS ORDERED: ONDANSETRON HCL 4 MG ORAL DISINTEGRATING TAB PO PRN (08:15)
[2019-03-13] MEDS: AMLODIPINE BESYLATE 10 MG TAB PO SCH (08:28)
[2019-03-13] MEDS: PANTOPRAZOLE SOD 40 MG TABEC PO SCH (08:28)
[2019-03-13] MEDS: NPH, HUMAN INSULIN ISOPHANE 100 UNIT/1 ML 3ML VIAL SQ SCH (08:28)
[2019-03-13] MEDS: LISINOPRIL 20 MG TAB PO SCH (08:28)
--- NOTE | 2019-03-13 08:53 | NUR ---
patient alert and oriented, leaving the unit via hospital bed for chemical processing laborer procedure.
--- NOTE | 2019-03-13 10:01 | NUR ---
1001Bedside report received from Travis KHOURY. Alert oriented and appropriate, PERRLA, respirations even and unlabored to room air. Pulses x4 extremities equal and strong. Pedal pulses PT/DP X4. Cap fill brisk < 3 sec. Rt Trband site with NO gross issues pain,pallor,pressure or dysthymia.Dr Sampson spoke with pt and family for surgical evaluation and transport to hospital to accommodate. Papers for transfer copied with CD To transfer back to floor after TR band off.Dr Maza aware of findings spoke with pt and Dr Sampson. Tolerating po intake back to baseline orientation. Skin warm and dry integrity appears D/I. IV 20g to left posterior arm at 100cchr via iv controller. Presents healthy w/o s/s of infiltration or complaint. Abdomen soft and supple. pt offered toileting, denies need to urinate or defecate. No personal affects with patient. Family at bedside Pt and family verbalizes understanding of POC. Currently w/o complaint of pain or need. ds/rn
--- NOTE | 2019-03-13 11:50 | NUR ---
1150 RADIAL Compression removal: Initial Cuff volume 10 cc 1150a -2 cc Removed No hematoma/bleeding noted with normal neurovascular function. 1205p -5 cc Removed No hematoma/ bleeding noted with normal neurovascular function. 1220p -5 cc Removed No hematoma/bleeding noted with normal neurovascular function. Air removal completed. Stasis achieved sterile 2x2,Tegaderm, Coban dressing No hematoma, bleeding noted with normal neurovascular function. Wrist splint in place. Pt instructed on POC. Ds/Rn
--- NOTE | 2019-03-13 12:30 | NUR ---
1230p Pt transported to floor care valentín Young RN,report to fork lift technician ,via bed. No gross issues pain,pallor pressure or dysrhythmia. Rt TR band site healthy. Support wrist splint in place. Normal neuro vascular function. Pt tolerated po intake. Pt has copy of chart in folder to give to receiving facility.Iv site healthy no s/s infiltration. Denies c/o Call light at bedside.Bed in low position ds/rn
[2019-03-13] MEDS ORDERED: HEPARIN 25,000 UNIT/D5W 250ML 250 ML IV SCH (13:00)
--- NOTE | 2019-03-13 13:06 | Progress Note ---
DATE: Cardiology Progress Note SUBJECTIVE: The patient feels well. Denies any chest pain or shortness of breath. OBJECTIVE: VITAL SIGNS: Temperature is 96.2, heart rate is 62, respirations are 18, blood pressure is 159/84, saturation is 99% on room air. GENERAL: Well appearing, no apparent distress. CARDIOVASCULAR: Regular rate and rhythm with ectopy. LUNGS: Clear to auscultation. ABDOMEN: Soft, nontender, nondistended. EXTREMITIES: No clubbing, cyanosis, or edema. CARDIOVASCULAR MEDICATIONS: Reviewed and include atorvastatin, lisinopril, amlodipine. LABORATORY DATA: Reviewed. Glucose 130. Telemetry monitoring revealed normal sinus rhythm. Coronary angiography revealed significant left main and RCA coronary artery disease. IMPRESSION: 1. Multivessel coronary artery disease. 2. Dizziness. 3. Bradycardia. 4. Abnormal electrocardiogram. 5. Hypertension. 6. Hyperlipidemia. 7. Diabetes mellitus. RECOMMENDATIONS: The patient underwent cardiac catheterization today, which revealed significant distal left main and right coronary artery stenoses. The patient will need coronary artery bypass graft surgery. Continue current cardiovascular medications. Start a heparin drip. Continue to monitor on telemetry. Carotid Doppler ultrasound was within normal limits. The patient may need a CT angiography of the neck to reveal any occlusions of his basal arterial stent. Recommend transfer to [facility] for bypass surgery. DO FREDDIE Skinner/MODL /[id number]
[2019-03-13] MEDS ORDERED: SODIUM CHLORIDE 0.9% 250ML 250 ML ONE (13:31)
[2019-03-13] MEDS ORDERED: HEPARIN 25,000 UNIT 900 UNIT in DEXTROSE 5% 250ML 250 ML IV SCH ×4 (14:00)
[2019-03-13] MEDS ORDERED: TRAMADOL HCL 50 MG TAB PO PRN (15:00)
--- NOTE | 2019-03-13 16:15 | NUR ---
report called to [facility] Prakash Isaac for patient to transfer. Patient aware of change and household cook to call ambulance at this time.
[2019-03-13] MEDS ORDERED: LISINOPRIL 20 MG TAB PO ONE (17:00)
--- NOTE | 2019-03-13 19:08 | NUR ---
patient alert and oriented with family at bedside. patient to be transferred at this time to [facility] for continuance of care. transferring via stretcher and ambulance.
--- NOTE | 2019-03-14 00:01 | Operative Report ---
DATE OF PROCEDURE: SURGEON: Andrea Sampson DO PROCEDURES PERFORMED: 1. Conscious sedation, 45 minutes. 2. Selective coronary angiography x2. 3. Left heart catheterization. 4. Intravascular ultrasound of the left main coronary artery. PREPROCEDURE DIAGNOSIS: Dizziness, abnormal electrocardiogram with an abnormal stress test. POSTPROCEDURE DIAGNOSIS: Multivessel coronary artery disease. ESTIMATED BLOOD LOSS: Less than 20 mL. SPECIMENS REMOVED: None. PROCEDURE IN DETAIL: After informed consent was obtained, the patient was brought to the cardiac catheterization laboratory in a fasting and nonsedated state. Bilateral groins and right wrist were prepped and draped in usual sterile fashion. A 2% lidocaine was infiltrated over the right wrist for local anesthesia. Using a micropuncture needle, the right radial artery was accessed via modified Seldinger technique and a 5/6 Slender sheath was placed. Next, diagnostic coronary angiography was performed using a TIG catheter. This was also used to enter the left ventricle and hemodynamic parameters were obtained. Diagnostic imaging revealed a significant distal left main stenosis and a decision was made to further interrogate this lesion. Next, the patient received additional heparin for therapeutic anticoagulation. Left main was cannulated with a 6-Kittitian JL 3.5 guide catheter. Lesion was crossed with a Luge wire and I performed intravascular ultrasound of the LAD, distal, and proximal left main. The patient tolerated the procedure well with no immediate complications, transferred back to his room in stable condition. FINDINGS: 1. The distal left main has 70% angiographic stenosis. The minimal luminal area by intravascular ultrasound was 3.68 mm2. The reference MLA of the proximal left main was 16.86 mm2. 2. Left anterior descending coronary artery is patent proximally and has a mid 60% stenosis. The proximal LAD has a minimal luminal area of 14.43 mm2. 3. Left circumflex coronary artery has two obtuse marginal vessels with mild luminal irregularities. 4. The right coronary artery has two tandem mid 70% stenotic lesions. This vessel also provides the posterior descending coronary artery. 5. Left ventricular end-diastolic pressure was 5 mmHg. The left ventricular systolic pressure was 117 with an aortic pressure of 92. IMPRESSION: 1. Severe multivessel coronary artery disease involving the distal left main and right coronary arteries. 2. Mild intracavitary gradient, likely related to ventricular hypertrophy and hyperdynamic left ventricle. RECOMMENDATIONS: The patient will be referred and transferred for coronary artery bypass graft surgery. DO LINO Skinner /[id number]
== END 2019-03-13 19:08 | disposition short-term general hospital (02) | DRG 287 ==
LOC: ER 13:20 → ERHOLD 16:31 → MED/SURG2 17:26 → MED/SURG 03-12 14:59
PROC: 4A023N7 Measurement of Cardiac Sampling and Pressure, Left Heart, Percutaneous Approach (ICD-10-PCS; principal; 2019-03-13)
PROC: B2111ZZ Fluoroscopy of Multiple Coronary Arteries using Low Osmolar Contrast (ICD-10-PCS; 2019-03-13)
PROC: B2151ZZ Fluoroscopy of Left Heart using Low Osmolar Contrast (ICD-10-PCS; 2019-03-13)
PROC: B240ZZ3 Ultrasonography of Single Coronary Artery, Intravascular (ICD-10-PCS; 2019-03-13)
DX: I25.10 Atherosclerotic heart disease of native coronary artery without angina pectoris (principal); R00.1 Bradycardia, unspecified; I10 Essential (primary) hypertension; E11.9 Type 2 diabetes mellitus without complications; E78.5 Hyperlipidemia, unspecified; R94.31 Abnormal electrocardiogram [ECG] [EKG]; R55 Syncope and collapse; Z79.4 Long term (current) use of insulin
CPT/HCPCS: 36415; 78452; 80053; 82948; 83735; 83880; 84100; 84484; 85025; 92978; 93005; 93017; 93458; 99152; 99153; 99284; A9502; C1753; C1887; J1817; J2001; J2250; J3010; J7030; J7050; Q9967

== ENCOUNTER → 2021-07-18 | Outpatient (CLI) | payer MEDICARE | LOC: CT 07:37 | PROVIDERS: ATTEND Family Medicine | DX: Z77.090 Contact with and (suspected) exposure to asbestos (principal) | CPT/HCPCS: 71250 ==